=== PATIENT | female | born 1965 | race Caucasian/White ===

== ENCOUNTER 2017-08-09 07:45 | Emergency (ER) | payer OTHER ==
[~2017-08-09] VITALS: Ht 157.5 cm; Wt 46.5 kg
[~2017-08-09 07:45] MED LIST: HYDR-3498 PO
[2017-08-09 07:48] VITALS: Ht 157.5 cm; Wt 46.5 kg
[2017-08-09] MEDS ORDERED: KETOROLAC 30 MG INJ IV STA (08:23)
[2017-08-09] MEDS ORDERED: SOD CHLORIDE 0.9% 1,000 ML IV STA (08:23)
[2017-08-09 09:03] LABS: BASOPHIL # 0.1 10^3/ul (0.0-0.1); BASOPHILS % 0.9 % (0.0-2.0); EOSINOPHILS % 0.7 % (0.0-7.0); HEMATOCRIT 43.4 % (37.0-47.0); HEMOGLOBIN 14.7 g/dl (12.0-16.0); LYMPHOCYTES # 1.9 10^3/ul (0.8-2.9); LYMPHOCYTES % 35.5 % (15.0-51.0); MEAN CORPUSCULAR HEMOGLOBIN 31.1 pg (29.0-33.0); MEAN CORPUSCULAR HGB CONC 33.9 g/dl (32.0-37.0); MEAN CORPUSCULAR VOLUME 91.9 fl (82.0-101.0); MEAN PLATELET VOLUME 11.2 fl (7.4-10.4); MONOCYTE # 0.4 10^3/ul (0.3-0.9); MONOCYTES % 6.4 % (0.0-11.0); NEUTROPHIL # 3.1 10^3/ul (1.6-7.5); NEUTROPHILS % 56.3 % (39.0-77.0); PLATELET COUNT 195 10^3/UL (140-415); RED BLOOD COUNT 4.72 10^6/ul (4.20-5.40); RED CELL DISTRIBUTION WIDTH 12.7 % (11.5-14.5); WHITE BLOOD COUNT 5.4 10^3/ul (4.8-10.8)
[2017-08-09 09:08] LABS: ADD UMIC YES; UR ASCORBIC ACID NEGATIVE (NEGATIVE); UR BILIRUBIN (Dip) NEGATIVE (NEGATIVE); UR BLOOD (Dip) 1+ mg/dL (NEGATIVE); UR CLARITY CLEAR (CLEAR); UR COLOR STRAW (YELLOW); UR GLUCOSE (Dip) NEGATIVE (NEGATIVE); UR KETONES (Dip) NEGATIVE (NEGATIVE); UR LEUKOCYTE ESTERASE (Dip) NEGATIVE Leu/ul (NEGATIVE); UR NITRITE (Dip) NEGATIVE (NEGATIVE); UR RBC 1 /HPF (0-5); UR SPECIFIC GRAVITY (Dip) 1.011 (1.003-1.030); UR TOTAL PROTEIN (Dip) NEGATIVE (NEGATIVE); UR UROBILINOGEN (Dip) NEGATIVE (NEGATIVE)
--- NOTE | 2017-08-09 09:24 | RADRPT ---
PROCEDURE: US Pelvis. CLINICAL INDICATION: Pelvic pain. Post menopausal. TECHNIQUE: The pelvis was evaluated with transabdominal and transvaginal sonography in the axial a nd sagittal planes. COMPARISON: No prior study is available for comparison. FINDINGS: Uterus: 4.7 x 1.8 x 3.6 cm. Endometrium: 2.0 mm. Right ovary: 1.6 x 1.1 x 1.1 cm. Left ovary: 1.6 x 0.8 x 1.7 cm. Uterine masses: None. Ovarian masses: None. Color Doppler and pulsed Doppler sonography demonstrate normal flow to the ova karen. Other pelvic masses: None. Free fluid: None. IMPRESSION: 1. Normal pelvic ultrasound. RPTAT: QQ .Kwawdo Myrick MD, Date Time Electronically viewed and signed by .Kwadwo Myrick MD, on 08/09/2017 09:24 .R/
[2017-08-09 09:34] LABS: ALBUMIN 4.7 g/dl (3.3-4.9); ALBUMIN/GLOBULIN RATIO 1.38; BILIRUBIN,INDIRECT 0.4 mg/dl (0-1.1); BILIRUBIN,TOTAL 0.4 mg/dl (0.2-1.3); CALCIUM 9.6 mg/dl (8.4-10.2); CREATININE 0.67 mg/dl (0.44-1.00); POTASSIUM 4.6 mmol/L (3.5-5.1); TOTAL PROTEIN 8.1 g/dl (6.1-8.1)
[2017-08-09] MEDS ORDERED: NAPR-260 PO (10:02)
--- NOTE | 2017-08-09 10:12 | ERD ---
ER Documentation Chief Complaint Date/Time DATE: 08/09/17 TIME: 10:08 Chief Complaint Pt with Pelvic pain, N/V, DRAKE X 1 week, fever X 2 days. urine frequency HPI 31-year-old female complaining of pelvic pain 1 week. Patient states she has had urinary frequency. Has never had pain like this before. Denies any changes in bowel movement. Has had nausea. Not taking medications for symptoms. Denies fever. Feels chills. Denies sick contacts. Patient has not had her period for 7 years. ROS All systems reviewed and are negative except as per history of present illness. Medications Home Meds Active Scripts Naproxen* (Naprosyn*) 500 Mg Tablet, 500 MG PO BID Y for PAIN AND/OR INFLAMMATION, #30 TAB Prov:KUMAR PENA PA-C 08/09/17 Reported Medications Hydrocodone Bit-Acetaminophen* (Island*) 5-325 Mg Tab, 1 TAB PO DAILY Y for PAIN , TAB 06/19/15 Allergies Allergies: Coded Allergies: No Known Drug Allergy (Verified Allergy, Unknown, 06/19/15) PMhx/Soc History of Surgery: No Anesthesia Reaction: No Hx Neurological Disorder: No Hx Respiratory Disorders: No Hx Psychiatric Problems: No Hx Miscellaneous Medical Probl: No Hx Alcohol Use: No Hx Substance Use: No Hx Tobacco Use: No Physical Exam Vitals Vital Signs Date Time Temp Pulse Resp B/P Pulse Ox O2 Delivery O2 Flow Rate FiO2 08/09/17 07:48 97.1 78 20 137/79 100 Physical Exam GENERAL: The patient is well-appearing, well-nourished, in no acute distress CHEST: Clear to auscultation bilaterally. There are no rales, wheezes or rhonchi. HEART: Regular rate and rhythm. No murmurs, clicks, rubs or gallops. No S3 or S4. ABDOMEN: Soft, nondistended. Mild tenderness to palpation in the pelvic region bilaterally. No rebound tenderness. Normoactive bowel sounds. No organomegaly BACK: No midline or flank tenderness. Result Diagram: 08/09/17 0830 08/09/17 0830 Results 24 hrs Laboratory Tests Test 08/09/17 08:30 White Blood Count 5.410^3/ul Red Blood Count 4.7210^6/ul Hemoglobin 14.7g/dl Hematocrit 43.4% Mean Corpuscular Volume 91.9fl Mean Corpuscular Hemoglobin 31.1pg Mean Corpuscular Hemoglobin Concent 33.9g/dl Red Cell Distribution Width 12.7% Platelet Count 95249^3/UL Mean Platelet Volume 11.2fl Neutrophils % 56.3% Lymphocytes % 35.5% Monocytes % 6.4% Eosinophils % 0.7% Basophils % 0.9% Nucleated Red Blood Cells % 0.0/100WBC Neutrophils # 3.110^3/ul Lymphocytes # 1.910^3/ul Monocytes # 0.410^3/ul Eosinophils # 0.010^3/ul Basophils # 0.110^3/ul Nucleated Red Blood Cells # 0.010^3/ul Urine Color STRAW Urine Clarity CLEAR Urine pH 7.0 Urine Specific [place] 1.011 Urine Ketones NEGATIVEmg/dL Urine Nitrite NEGATIVEmg/dL Urine Bilirubin NEGATIVEmg/dL Urine Urobilinogen NEGATIVEmg/dL Urine Leukocyte Esterase NEGATIVELeu/ul Urine Microscopic RBC 1/HPF Urine Microscopic WBC 0/HPF Urine Hemoglobin 1+mg/dL Urine Glucose NEGATIVEmg/dL Urine Total Protein NEGATIVEmg/dl Sodium Level 144mmol/L Potassium Level 4.6mmol/L Chloride Level 107mmol/L Carbon Dioxide Level 30mmol/L Anion Gap 12 Blood Urea Nitrogen 7mg/dl Creatinine 0.67mg/dl Glucose Level 105mg/dl Calcium Level 9.6mg/dl Total Bilirubin 0.4mg/dl Direct Bilirubin 0.00mg/dl Indirect Bilirubin 0.4mg/dl Aspartate Amino Transf (AST/SGOT) 24IU/L Alanine Aminotransferase (ALT/SGPT) 31IU/L Alkaline Phosphatase 81IU/L Total Protein 8.1g/dl Albumin 4.7g/dl Globulin 3.40g/dl Albumin/Globulin Ratio 1.38 Current Medications Medications (Trade) Dose Ordered Sig/Xavier Route PRN Reason Start Time Stop Time Status Last Admin Dose Admin Sodium Chloride (NS) 1,000 ml @ 1,000 mls/hr Q1H STAT IV 08/09/17 08:23 08/09/17 09:22 DC 08/09/17 08:44 Ketorolac Tromethamine (Toradol) 30 mg ONCE STAT IV 08/09/17 08:23 08/09/17 08:25 DC 08/09/17 08:44 Procedures/MDM DIAGNOSTIC IMAGING REPORT Patient: TINA MC : 1965 Age: 51 Sex: F MR #: [id number] [facility] #: [id number] DOS: 08/09/17 0000 Ordering MD: LILA PENA PA-C Location: [facility] Room/Bed: PROCEDURE: US Pelvis. CLINICAL INDICATION: Pelvic pain. Post menopausal. TECHNIQUE: The pelvis was evaluated with transabdominal and transvaginal sonography in the axial and sagittal planes. COMPARISON: No prior study is available for comparison. FINDINGS: Uterus: 4.7 x 1.8 x 3.6 cm. Endometrium: 2.0 mm. Right ovary: 1.6 x 1.1 x 1.1 cm. Left ovary: 1.6 x 0.8 x 1.7 cm. Uterine masses: None. Ovarian masses: None. Color Doppler and pulsed Doppler sonography demonstrate normal flow to the ovaries. Other pelvic masses: None. Free fluid: None. IMPRESSION: 1. Normal pelvic ultrasound. ER Course: Toradol and fluids given in ED MDM: 51-year-old female complaining of pelvic pain. I have low suspicion for tubo-ovarian abscess, or ovarian torsion. Patient's ultrasound is within normal limits. I have low suspicion for ectopic as patient's urine is negative patient has not had a period for 7 years. I have low suspicion for acute abdominal emergencies patient's abdominal exam is non- concerning. I have low suspicion for pyelonephritis or urinary tract infection. Patient's urine is within normal limits. Patient will be discharged with pain medication and recommended to follow-up with primary care within 1-2 days for close evaluation. Patient is told if symptoms change or worsen to return the ER. All questions answered discharge. Departure Diagnosis: Primary Impression: Acute pain in female pelvis Condition: Stable Patient Instructions: Pelvic Pain, Unknown Cause Referrals: [facility] YOU HAVE RECEIVED A MEDICAL SCREENING EXAM AND THE RESULTS INDICATE THAT YOU DO NOT HAVE A CONDITION THAT REQUIRES URGENT TREATMENT IN THE EMERGENCY DEPARTMENT. FURTHER EVALUATION AND TREATMENT OF YOUR CONDITION CAN WAIT UNTIL YOU ARE SEEN IN YOUR DOCTORS OFFICE WITHIN THE NEXT 1-2 DAYS. IT IS YOUR RESPONSIBILITY TO MAKE AN APPOINTMENT FOR FOLOW-UP CARE. IF YOU HAVE A PRIMARY DOCTOR --you should call your primary doctor and schedule an appointment IF YOU DO NOT HAVE A PRIMARY DOCTOR YOU CAN CALL [facility] IF YOU CAN NOT AFFORD TO SEE A PHYSICIAN YOU CAN CHOSE FROM THE FOLLOWING FOR[facility]LY [facility] [address] [facility] [address] [facility] [address] [facility] [address] [facility] [address] [facility]. [facility]. [address] Additional Instructions: FOLLOW UP WITH YOUR PRIMARY CARE PHYSICIAN TOMORROW.Return to this facility if you are not improving as expected. KUMAR PENA PA-C Aug 09, 2017 10:12
[2017-08-09 10:22] VITALS: BP 121/74; PULSE 74; RESP 18; TEMP 97.6
== END 2017-08-09 10:29 | disposition home or self-care (01) ==
LOC: FTE 07:45
DX: R10.2 Pelvic and perineal pain (principal)
CPT/HCPCS: 36415; 76830; 76856; 80053; 81001; 85025; 96374; J1885; J7030; Z7502

== ENCOUNTER 2018-04-06 19:25 | Emergency (ER) | END 2018-04-06 22:41 | disposition home or self-care (01) ==